=== PATIENT | female | born 1995 | race Hispanic/Latino ===

== ENCOUNTER 2024-10-08 19:01 | Emergency (ER) | payer SELFPAY ==
[~2024-10-08] VITALS: Ht 170.2 cm; Wt 65.3 kg
[~2024-10-08 19:01] MED LIST: HYDR28OI10 TP; PREN1TAB89 PO
--- NOTE | 2024-10-08 19:48 | ERN ---
ED Note History of Present Illness Stated Complaint: RELAPSE WITHDRAWS Chief Complaint: Abdominal Pain Time Seen by MD: 19:01 Time Seen by Midlevel: 19:06 Dictation: 29-year-old female with a past medical history coming in for abdominal pain, nausea, vomiting, cold sweats. 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 Allergies: Coded Allergies: No Known Drug Allergies (Unverified Allergy, Intermediate, 11/11/11) Home Meds Reported Medications Hydrocortisone Acetate (Hydrocortisone) 28 Gm Oint...g., 28 GM TP AD 01/29/16 Vit W-Ca,Fe,FA(<1 mg) ( Vitamins) 1 Each Tablet, 1 EACH PO DAILY, TAB 01/28/16 Past Medical History Past Medical History: No Pertinent History Surgical History: None LMP: Sep 23, 2024 Review of System Dictation Constitutional: Negative for fever,chills, and weight loss Eyes: Negative for injury, pain,redness, and discharge ENT: Negative for injury,pain or swelling Cardiovascular: Negative for chest pain, palpitations, and edema Respiratory: Negative for shortness of breath, cough, and wheezing, Abdomen/GI: Complaining of generalized abdominal pain and nausea and vomiting, no diarrhea, and no constipation Back: Negative for injury and pain : Negative for injury, bleeding and discharge MS/Extremity: Negative for injury and deformity Skin: Negative for rash, and discoloration Neuro: Negative for headache, weakness, numbness, tingling, and seizure Psych: Negative for suicide ideation, homicidal ideation, and hallucinations Review of Systems: was completed Initial Vital Sign VS Vital Signs Date Time Temp Pulse Resp B/P (MAP) Pulse Ox O2 Delivery O2 Flow Rate FiO2 10/08/24 19:28 98.8 74 20 107/65 98 Room Air 10/08/24 21:44 0 21 Physical Exam Dictation General: awake, alert, NAD Head/Face: Normocephalic, atraumatic Eyes: PERRL, EOMI, vision at baseline ENT: oral cavity clear, TMs clear, no signs of infection Neck: Trachea midline, supple, no nuchal rigidity Cardiovascular: RRR, normal S1/S2, No MRGs, no JVD Respiratory: CTAB, no respiratory distress, No rales or wheezes Abdomen: Soft, non-tender, non-distended, normal bowel sounds, no guarding or rebound. Skin: Warm, dry, normal turgor, no rash MS/Extremity: Pulses equal, no cyanosis, neurovascular intact, FROM Neuro: COAx4, GCS 15, strength 5/5, CN 2-12 intact, normal cerebellar exam, normal gait, Psych: Normal behavior, mood, and affect normal Results (Laboratory/Radiology) Laboratory/Radiology Laboratory Tests Test 10/08/24 20:22 White Blood Count 10.1 K/uL (4.8-10.8) Red Blood Count 4.13 MIL/uL (4.00-5.50) Hemoglobin 8.7 g/dL (12.0-16.0) L Hematocrit 29.8 % (36-48) L Mean Corpuscular Volume 72.2 fL (79-99) L Mean Corpuscular Hemoglobin 21.1 pg (27.0-33.0) L Mean Corpuscular Hemoglobin Concent 29.2 g/dL (32.0-36.0) L Red Cell Distribution Width 16.0 % (11.0-15.5) H Platelet Count 330 K/uL (130-400) Mean Platelet Volume 9.2 fL (7.5-10.5) Immature Granulocyte % (Auto) 0.2 % (0-1) Neutrophils (%) (Auto) 62.5 % (40.0-77.0) Lymphocytes (%) (Auto) 29.2 % (21.0-51.0) Monocytes (%) (Auto) 6.7 % (3.0-13.0) Eosinophils (%) (Auto) 0.6 % (0.0-8.0) Basophils (%) (Auto) 0.8 % (0.0-5.0) Neutrophils # (Auto) 6.3 K/uL (1.8-7.7) Lymphocytes # (Auto) 3.0 K/uL (1.0-4.8) Monocytes # (Auto) 0.7 K/uL (0.1-1.0) Eosinophils # (Auto) 0.06 K/uL (0.00-0.70) Basophils # (Auto) 0.08 K/uL (0.00-0.20) Absolute Immature Granulocyte (auto 0.02 K/uL (0-1) Nucleated Red Blood Cells 0.0 % (0.0-0.19) Sodium Level 141 mmol/L (136-145) Potassium Level 3.2 mmol/L (3.5-5.1) L Chloride Level 103 mmol/L (101-111) Carbon Dioxide Level 28 mmol/L (21-32) Blood Urea Nitrogen 20 mg/dL (7-18) H Creatinine 0.6 mg/dL (0.5-1.0) Glomerular Filtration Rate Calc 124 mL/min (>90) Random Glucose 94 mg/dL (70-105) Total Calcium 9.0 mg/dL (8.5-10.1) Total Bilirubin 0.3 mg/dL (0.2-1.0) Direct Bilirubin 0.1 mg/dL (0.0-0.3) Aspartate Amino Transf (AST/SGOT) 13 U/L (10-37) Alanine Aminotransferase (ALT/SGPT) 26 U/L (12-78) Alkaline Phosphatase 116 U/L (50-136) Total Protein 8.6 g/dL (6.0-8.3) H Albumin 3.8 g/dL (3.5-5.0) Lipase 28 U/L (16-77) Human Chorionic Gonadotropin, Quant 0 mIU/mL (0-5) Labs Reviewed?: Yes EKG Comment: EKGs was done at 7:58 p.m.. Sinus rhythm at a rate is 58. No STEMI interpreted by ER MD. ED Course ED Course Orders Procedure Category Date Status Time Cbc With Differential LAB 10/08/24 In Process 19:33 Basic Metabolic Panel LAB 10/08/24 Complete 19:33 Lipase LAB 10/08/24 Complete 19:33 Hepatic Function Panel LAB 10/08/24 Complete 19:33 Hcg,Quantitative LAB 10/08/24 Complete 19:33 0.9%Nacl 1000ml (Ns PHA 10/08/24 Complete 1000ml) 19:33 Ondansetron 4mg Inj PHA 10/08/24 Complete (Zofran 4mg Inj) 19:33 Hydroxyzine 25mg Tab PHA 10/08/24 Complete (Atarax 25mg Tab) 19:33 12 Lead Ekg Tracing- EKG 10/08/24 Logged Technical 19:48 Potassium Bicarb/Cit PHA 10/08/24 Complete Ac 25meq (K-Lyte Ta 20:48 Current Medications Medications (Trade) Dose Ordered Sig/Kraely Route PRN Reason Start Time Stop Time Status Last Admin Dose Admin Hydroxyzine HCl (ATArax 25MG TAB) 25 mg ONCE STAT PO 10/08/24 19:33 10/08/24 19:36 DC 10/08/24 20:22 Ondansetron HCl (zoFRAN 4MG INJ) 4 mg ONCE STAT IVP 10/08/24 19:33 10/08/24 19:36 DC 10/08/24 20:22 Potassium Bicarbonate (K-Lyte Tablet Eff 25 Meq Tablet.eff) 25 meq ONCE STAT PO 10/08/24 20:48 10/08/24 20:50 DC 10/08/24 21:05 Sodium Chloride 1,000 ml @ 1,000 mls/hr Q1H STAT IV 10/08/24 19:33 10/08/24 20:32 DC 10/08/24 20:22 Vital Signs Date Time Temp Pulse Resp B/P (MAP) Pulse Ox O2 Delivery O2 Flow Rate FiO2 10/08/24 21:44 98.1 72 16 104/60 98 Room Air* 0 21 10/08/24 19:28 98.8 74 20 107/65 98 Room Air Medical Decision Making MDM MDM: 29-year-old female with a past medical history coming in for abdominal pain, nausea, vomiting, cold sweats. 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 Denies any SI, HI. CBC shows no leukocytosis, microcytic anemia, no thrombocytopenia. Chemistry unremarkable other than hypokalemia which was replaced in the ER. No transaminitis, lipase within normal range. After fluids, Pepcid and Zofran patient feels better. CIWA score is one. Patient was able to drink the potassium replacement and did not throw up. Discussed with the patient she needs to follow up with PCP and or with the therapist. Educated on signs and symptoms of when to return back to the ED are. Differential diagnosis: Drug cholesterol, dehydration, anxiety Rationale: Tests considered and ordered secondary to shared decision making include: Previous outside records reviewed: Old ER visits. Risk of complication and/or morbidity or mortality of patient management: None Medications-Per medication reconciliation Need for hospitalization: Patient does not meet criteria for hospitalization. Need for emergency major/minor surgery: No There are no social concerns with this patient. Prescription drug management Prescriptions will include symptomatic care Patient's prior external medical records from other ER visits were reviewed by me as indicated. Prior testing and results from previous visits were reviewed. Prior tests were taken into account with medical decision making and resource utilization, independent historian/historians were used to obtain complete medical history. I independently interpreted the test that were performed, results were reviewed by me and considered findings on radiology if ordered. Medical management and examination interpretation discussions were had by me with other qualified healthcare professionals as indicated for the patient's care. DX & DISP Disposition: Discharge Departure Impression: Primary Impression: Nausea & vomiting Additional Impression: Drug use Condition: Stable Scripts Famotidine (Pepcid) 20 Mg Tablet 1 TAB PO BID for 30 Days, #60 TAB 0 Refills Prov: DIXON LE [employer] SUPERVISOR 10/08/24 Ondansetron (Ondansetron Odt) 4 Mg Tab.rapdis 4 MG PO Q6HPRN PRN for nausea, #16 TAB 0 Refills Prov: DIXON LE [employer]WORK SUPERVISOR 10/08/24 Additional Instructions: Take medications as prescribed. Try to increase your diet as tolerated. Talk to your counselor and it has not appointment with the PCP in 1-2 days. Please return to the ER if you have any worsening symptoms. Referrals: SELF,REFERRAL (PCP) Time of Disposition: 21:49 I have reviewed the case, and I agree with, Diagnosis and Plan DIXON LE NP Oct 08, 2024 19:48
[2024-10-08] MEDS: 0.9%NACL 1000ML 1,000 ML IV STA (20:22)
[2024-10-08] MEDS: hydrOXYzine 25 MG TABLET PO STA (20:22)
[2024-10-08] MEDS: ondanSETRON 4MG INJ IVP STA (20:22)
[2024-10-08 20:31] LABS: BASOPHILS # (AUTO) 0.08 K/uL (0.00-0.20); BASOPHILS % (AUTO) 0.8 % (0.0-5.0); EOSINOPHILS # (AUTO) 0.06 K/uL (0.00-0.70); EOSINOPHILS % (AUTO) 0.6 % (0.0-8.0); HEMATOCRIT 29.8 % (36-48); IMMATURE GRANULOCYTE ABSOLUTE 0.02 K/uL (0-1); LYMPHOCYTES % (AUTO) 29.2 % (21.0-51.0); MEAN CORPUSCULAR HEMOGLOBIN 21.1 pg (27.0-33.0); MEAN CORPUSCULAR HGB CONC 29.2 g/dL (32.0-36.0); MEAN CORPUSCULAR VOLUME 72.2 fL (79-99); MONOCYTES # (AUTO) 0.7 K/uL (0.1-1.0); MONOCYTES % (AUTO) 6.7 % (3.0-13.0); NEUTROPHILS # (AUTO) 6.3 K/uL (1.8-7.7); NEUTROPHILS % (AUTO) 62.5 % (40.0-77.0); PLATELET COUNT (AUTO) 330 K/uL (130-400); RED BLOOD CELL COUNT(AUTO) 4.13 MIL/uL (4.00-5.50); WHITE BLOOD COUNT (AUTO) 10.1 K/uL (4.8-10.8)
[2024-10-08 20:40] LABS: CREATININE 0.6 mg/dL (0.5-1.0); POTASSIUM 3.2 mmol/L (3.5-5.1)
[2024-10-08 20:51] LABS: ALBUMIN 3.8 g/dL (3.5-5.0); BILIRUBIN,DIRECT 0.1 mg/dL (0.0-0.3); BILIRUBIN,TOTAL 0.3 mg/dL (0.2-1.0); TOTAL PROTEIN, SERUM 8.6 g/dL (6.0-8.3)
[2024-10-08] MEDS: PoTASSium BIcarbonate/CIT AC 25 MEQ TABLET.EFF PO STA (21:05)
[2024-10-08 21:44] VITALS: BP 104/60; PULSE 72; RESP 16; TEMP 98.1; O2SAT 98
[2024-10-08] MEDS ORDERED: ONDA-243 PO (21:50)
[2024-10-08] MEDS ORDERED: FAMO-136 PO (21:50)
--- NOTE | 2024-10-09 08:07 | EKG ---
[facility] Test Date: 2024-10-08 Test Time: 19:58:58 Pat Name: SEUN WALTERS Department: ED Room: Gender: Female Filler Spreader: [id number] : 1995 Requested By: DIXON LE Order Number: [id number] Reading MD: Measurements Intervals [place] Rate: 58 P: 53 CA: 143 QRS: 47 QRSD: 93 T: 46 QT: 406 QTc: 398 Interpretive Statements Sinus rhythm No previous ECG available for comparison Please click the below link to view image of tracing.
== END 2024-10-08 21:59 | disposition home or self-care (01) ==
LOC: EDH 19:01
DX: R11.2 Nausea with vomiting, unspecified (principal); F15.90 Other stimulant use, unspecified, uncomplicated; R10.9 Unspecified abdominal pain; R61 Generalized hyperhidrosis
CPT/HCPCS: 99284; 96374; 96361; 80076; 80048; 84702; 83690; 85025; 36415; 93005; J7030; J2405